=== PATIENT | female | born 1945 | race Caucasian/White ===

== ENCOUNTER → 2018-03-27 | Outpatient (CLI) | payer MEDICARE, BC ==
[~2018-03-27] MED LIST: ACET325 PO; ASPI81CH PO; ASPI81EC; Ambien5 MG PO; BENICAR PO; Biotin 800 Mcg1 EACH PO; Biotin1 MG PO; CALCAVITDA; CALCIUM PO; CALGLU500; CETI5 PO; CHOL10002 PO; CLON.1 PO; CO Q10200 MG PO; COLACE CLEAR50 MG PO; COLON HEALTH PO; CRANBERRY 6,001 EACH PO; CRANBERRY PLUS C PO; CRANBERRY TAB; CRANBERRY250 MG PO; CRANBERRY450 M1 PO; Carisoprodol350 MG PO; Coq-10100 MG; DILANTIN; DIPH50 PO; DOCU100 PO; ECHINACEA; ECHINACEA PO; EVENING PRIMROSE; Echinacea & Go1 EACH PO; FISH1000 PO; FURO20 PO; GLUCHON; GLUCOPHAGE; HYDACE5 PO; HYDR1TAB94 PO; Hard Nails2500 MCG PO; Hydrocodone-Ap1 EA20 PO; Icaps Tablet1 EACH PO; LASIX; LOSA50 PO; MELADOX3 MG; MELATONIN5 M1 PO; METAMUCIL FIBE PO; METO25ER PO; MULVITA; MULVITMIND PO; NORVASC; NYQUIL PO; OMEG1CAP30 PO; POTA8; POTA8 PO; PRIMROSE OIL PO; PROBIOTIC1 EAC1 PO; PROP10 PO; PSYL5.85P; SITA100T2 PO; SOMA250 MG PO; STRESS B-COMPL1 EACH PO; TYLENOL COLD; VIOXX; VITAMIN B PO; VITAMIN C; VITAMIN E; ZOLP5 PO; ZYRTEC10 M2 PO; [UNRECOGNIZED DRUG - OTHER]; [UNRECOGNIZED DRUG - OTHER] PO
[2018-03-27 14:32] LABS: BASOPHILS ABSOLUTE AUTO 0.06 K/mm3 (0.00-0.23); BASOPHILS PERCENT AUTO 1 % (0-2); EOSINOPHILS ABSOLUTE AUTO 0.31 K/mm3 (0.00-0.68); EOSINOPHILS PERCENT AUTO 3 % (0-6); Hematocrit 42.6 % (33.0-51.0); IMMATURE GRAN ABSOLUTE AUTO 0.04 K/mm3 (0.00-0.10); IMMATURE GRAN PERCENT AUTO 0 % (0-1); LYMPHOCYTES ABSOLUTE AUTO 2.87 K/mm3 (0.84-5.20); LYMPHOCYTES PERCENT AUTO 26 % (21-46); MONOCYTES ABSOLUTE AUTO 1.28 K/mm3 (0.16-1.47); MONOCYTES PERCENT AUTO 11 % (4-13); Mean Corpuscular HGB 32.3 pg (26.0-34.0); Mean Corpuscular HGB Conc 32.9 g/dL (31.5-36.5); Mean Corpuscular Volume 98 fL (80-100); Mean Platelet Volume 9.9 fL (9.1-12.4); NEUTROPHILS ABSOLUTE AUTO 6.64 K/mm3 (1.96-9.15); NEUTROPHILS PERCENT AUTO 59 % (41-73); Platelet Count 234 K/mm3 (150-400); RDW Coefficient Variation 12.8 % (11.7-14.2); RDW Standard Deviation 45.9 fL (35.1-46.3); Red Blood Cell Count 4.33 M/mm3 (3.80-5.20)
[2018-03-27 14:44] LABS: Albumin, Blood 3.3 g/dL (3.4-5.0); Albumin/Globulin Ratio 0.8 (0.8-1.8); Bilirubin, Total 0.6 mg/dL (0.1-1.0); Bun/Creatinine Ratio 15.6 (12.0-20.0); Calcium, Blood 9.3 mg/dL (8.5-10.1); Creatinine, Blood 0.96 mg/dL (0.40-1.00); Globulin, Blood 4.1 g/dL (2.2-4.0); Potassium, Blood 4.7 mmol/L (3.5-5.5); Total Protein, Blood 7.4 g/dL (6.4-8.2)
[2018-03-27 15:30] LABS: Uric Acid, Blood 6.2 mg/dL (2.6-6.0)
== END | disposition home or self-care (01) ==
LOC: LAB EV 14:28 → LAB SHORT 14:28
PROVIDERS: General Practice
DX: M79.671 Pain in right foot (principal)
CPT/HCPCS: 80053; 84550; 85025

== ENCOUNTER 2020-11-02 10:53 | Day surgery (SDC) | payer MEDICARE, BC ==
[~2020-11-02] VITALS: Ht 162.6 cm; Wt 108.1 kg
[~2020-11-02 10:53] MED LIST changes: +Acetaminophen650 M1 PO; +Aspir 8181 MG PO; +BACL10 PO; +Biotin800 MCG PO; +Cranberry425 MG PO; +FISH OIL 1,2001 EAC7 PO; +GOLDENSEAL; +GUAI600T33 PO; +METAMUCIL POWD575 GM PO; +MONT10T PO; +Ocuvite Preser1 EACH PO; +PANT40 PO; +PRAVASTATIN SOD10 MG PO; +TURMERIC500 M2 PO; +VITAMIN D325 MC3 PO; +Vitamin B-Comp1 EACH PO; +ZOLP10 PO
--- NOTE | 2020-11-02 11:23 | NUR ---
11/02/20 1123 Ximena Juares TETRACAINE IN RIGHT EYE AT 1101 AND JOLENE IN RIGHT EYE AT 1103.
--- NOTE | 2020-11-02 11:38 | NUR ---
11/02/20 1138 Joaquina Acuna PATIENT STATES BETADINE DROPS IN THE EYE IS OK.
== END 2020-11-02 12:30 | disposition home or self-care (01) ==
LOC: ORSCSDS 10:53
PROVIDERS: Ophthalmology
PROC: 08RJ3JZ Replacement of Right Lens with Synthetic Substitute, Percutaneous Approach (ICD-10-PCS; principal; 2020-11-02 12:00)
DX: H25.11 Age-related nuclear cataract, right eye (principal); I10 Essential (primary) hypertension; E11.9 Type 2 diabetes mellitus without complications; E66.01 Morbid (severe) obesity due to excess calories; Z68.41 Body mass index [BMI] 40.0-44.9, adult; Z79.899 Other long term (current) drug therapy; Z79.82 Long term (current) use of aspirin
CPT/HCPCS: 82947; J2001; J2250; J3010; J3301; J7040; V2632

== ENCOUNTER 2020-11-15 08:00 | Day surgery (SDC) | payer MEDICARE, BC ==
[~2020-11-15] VITALS: Ht 160 cm; Wt 107.0 kg
== END 2020-11-15 09:49 | disposition home or self-care (01) ==
LOC: ORSCSDS 08:00
PROVIDERS: Ophthalmology
PROC: 08RK3JZ Replacement of Left Lens with Synthetic Substitute, Percutaneous Approach (ICD-10-PCS; principal; 2020-11-15 09:15)
DX: H25.12 Age-related nuclear cataract, left eye (principal); E11.9 Type 2 diabetes mellitus without complications; I10 Essential (primary) hypertension; E66.01 Morbid (severe) obesity due to excess calories; Z68.42 Body mass index [BMI] 45.0-49.9, adult; Z79.82 Long term (current) use of aspirin; Z79.4 Long term (current) use of insulin; Z79.899 Other long term (current) drug therapy
CPT/HCPCS: 82947; J2001; J2250; J3010; J3301; J7040; V2632

== ENCOUNTER 2022-05-25 12:44 | Emergency (ER) | payer MEDICARE, BC ==
[~2022-05-25] VITALS: Ht 167.6 cm; Wt 90.7 kg
== END 2022-05-25 14:17 ==
LOC: ER 12:44
DX: I46.9 Cardiac arrest, cause unspecified (principal); E11.9 Type 2 diabetes mellitus without complications; I10 Essential (primary) hypertension
CPT/HCPCS: 99285-25